=== PATIENT | female | born 1975 | race Caucasian/White ===

== ENCOUNTER 2024-02-05 18:07 | Emergency (ER) | payer OTHER, SELFPAY ==
[2024-02-05] VITALS (8 sets, daily range): BP systolic 149–174; BP diastolic 93–123; BMI 28.5
--- NOTE | 2024-02-05 19:14 | ED.GENMED ---
History of Present Illness
General
Chief Complaint: Blood Pressure Problem
Source: patient
Exam Limitations: none
Time Seen by Provider: 02/05/24 18:31
Travel History
Have you had any contact with someone who has COVID-19?: No
Do you have any symptoms of coronavirus? Fever > 100 degrees, chills, cough, shortness of breath, sore throat, loss of taste or smell, muscle aches, or headache?: No
History of Present Illness
History of Present Illness:
This is a 48 year old female that comes in with c/o hypertension. States that on she went to the PCP as she has been having trouble sleeping and increased weight gain. States that she also has a parathyroid issues that they are working up.
States that he BP was elevated at that time to 150/106. States that they checked this later and it was 145/110. States that she was told cecil buy a cuff and monitor her BP at home. States that she that today she hadn't even gotten out of bed and her
BP was 173/107. States that it seem to keep going up. States that lately she had this pin like feeling in the left chest that is deep that is dull and that she had left elbow discomfort. States that she has a dull headache that is nothing as she
normally has Migraines. States that it is behind the eyes and the temporal area. Denies any fever, chills, chest pain, SOB, abd pain, nausea, vomiting, diarrhea, dizziness, urinary burning.
Past History
Past History
ED Past Medical History: Hypothyroidism, Psychiatric (Anxiety) and Other (Migraines, C5-C6 bulging disc, Diverticulitis, Anemia, )
ED Past Surgical History: Gynecological (Hysterectomy, Bilateral Salpingectomy) and Other (Oral surgery, ganglion cyst removal )
Social History
Tobacco: Non-smoker
Alcohol: Occasional
Drug: Marijuana
Personal:
Living: alone
Review of Systems
Review of Systems
All Other Systems: ROS reviewed and negative except as documented in HPI and ROS
Constitutional: Reports no symptoms; Denies fever or chills
EENT: Reports no symptoms
Respiratory: Reports no symptoms; Denies cough or trouble breathing
Cardiac: Reports no symptoms; Denies chest pain
ABD/GI: Reports no symptoms; Denies abdominal pain, nausea, vomiting, diarrhea or constipated
: Reports no symptoms; Denies dysuria, frequency or urgency
Musculoskeletal: Reports no symptoms
Skin: Reports no symptoms
Neurological: Reports headache; Denies dizzy
Psychiatric: Reports no symptoms
Phy Exam
General Physical Exam
General Presentation: well appearing and no apparent distress
General age: appears stated age
General Skin: warm and dry
General Habitus: normal
General Mental: alert
General Hydration: appears well hydrated
ENT Exam
ENT Exam: TM's normal, pharynx normal and neck supple
Eye Exam
Eye Exam: EOMI
Cardiovascular Exam
Cardiovascular Exam: regular rate/rhythm, no edema, no murmur and normal peripheral pulses
Pulmonary Exam
Pulmonary Exam: lungs clear, no respiratory distress, no rales, chest non tender, no crackles, no rhonchi, no wheezing and no cough
Gastrointestinal Exam
Gastrointestinal Exam: normal bowel sounds, non tender, soft, no organomegaly, no pulsatile mass and non distended
Musculoskeletal Exam
Musculoskeletal Exam: full ROM and no edema
Skin Exam
Skin Exam: normal color, warm/dry, no rash and no petechia
Psychiatric Exam
Psychiatric Exam: normal mood/affect
Course
Orders/Labs/Results
Orders:
Orders
02/05/24 18:13
EKG [Electrocardiogram (*1)] Urgent
Reason for Study: Hypertension, Benign
EKG- Treatment ONCE
02/05/24 19:13
Acetaminophen [Tylenol] 1,000 mg PO NOW STA
HydrALAZINE [Apresoline] 5 mg IV NOW STA
02/05/24 19:29
Complete Blood Count/With Diff Urgent
Comprehensive Metabolic Panel Urgent
Troponin I Urgent
02/05/24 20:29
Lisinopril [Zestril] 5 mg PO NOW STA
Abnormal Lab Results
02/05/24
19:29
MCHC 32.8 L g/dL
(33.0-37.0)
BUN 20 H mg/dl
(7-17)
Calcium 10.4 H mg/dl
(8.4-10.2)
02/05/24 19:29
02/05/24 19:29
Dehydration. Troponin <0.012, Calcium slightly elevated.
Vital Signs
Initial and Last Documented VS:
Initial Vital Signs
Temp Pulse Resp BP Pulse Ox
98.5 F 95 16 174/123 99
02/05/24 18:09 02/05/24 18:09 02/05/24 18:09 02/05/24 18:09 02/05/24 18:09
Last Documented Vital Signs
Temp Pulse Resp BP Pulse Ox
98.5 F 90 16 153/95 99
02/05/24 18:09 02/05/24 20:20 02/05/24 19:24 02/05/24 20:20 02/05/24 20:20
MDM/Problems Addressed
Differential Diagnosis Includes:
Hypertension,
MDM/Problems Addressed:
This is a 48 year old female that comes in with c/o hypertension. States that she was seen in the PCP office on and her BP was elevated. States that she was told to monitory her BP. States that today she hadn't even gotten out of bed and
her BP was elevated. States that it kept going up throughout the day.
Will check labs and medication for Hypertension.
Back into see patient. BP down to 149/98. States that she feels fine. Will place patient on Lisinopril 5mg daily. Patient to follow up with the family doctor for further evaluation. Explained how to take a BP at home. Patient to return with any
concerns.
Chronic conditions affecting care:
NA
Acute Exacerbation and/or Progression of Chronic Illness:
NA
*Pulse Oximetry
Patient hypoxic: no
*EKG
Interpreted by ED Provider?: Yes
Heart Rate: 85
Rate: normal
Rhythm: sinus
[place]: normal axis
Interval: normal interval
QRS Pattern: normal QRS
Ischemia: no ischemia
*[employer] Interpretation
Rate: [employer]- N/A
*Critical Care Note
Total Time (30-74mins, 75-104mins- exclusive of procedures): Not Applicable
ED Attending Note
-
Portions of this chart may have been created with voice recognition software.� Occasional wrong word or��sound alike� substitutions may have occurred due to the inherent limitations of voice recognition software.
Discharge Plan
Departure
Patient Disposition: Home (Routine Discharge)
Date of Disposition: 02/05/24
Time of Disposition: 20:31
Patient with high blood pressure during this ER visit?: Yes
Condition: Good
Covid-19: Not Applicable
Discharge Problem:
Hypertension
Instructions: High Blood Pressure (DC), BLOOD PRESSURE
Prescriptions:
New
lisinopril 5 mg tablet
5 mg PO DAILY Qty: 30 0RF
No Action
venlafaxine [Effexor XR] 150 mg Capsule,Extended Release 24hr
150 mg PO DAILY
vitamin B complex Capsule
1 cap PO DAILY
cholecalciferol (vitamin D3) [Vitamin D3] 25 mcg (1,000 unit) Tablet
25 mcg PO DAILY
Fiber Gummies 2 gram Tablet,Chewable
2 g PO DAILY
magnesium gluconate
1 tab PO DAILY
Referrals:
Mansi Beltran CRNP [Family Provider] - Follow up in 2-3 days
Activity Restrictions/Additional Instructions:
As discussed, your blood work shows slight dehydration. Please increae your water intake to 8-8oz glasses daily. You have been given a prescription for Lisinopril and given your first dose here. Please take as directed. Follow up with the family
doctor for recheck. Monitory your blood pressure at home. IF YOU HAVE ANY OTHER CONCERNS PLEASE RETURN TO THE EMERGENCY ROOM
Interventions
Interventions:
*Risk Screen - Suicide Last Done: 02/05/24 18:09
*General Assessment Last Done: 02/05/24 18:09
*Neglect/Abuse Screening Last Done: 02/05/24 18:09
ED- Fall Risk Assessment Last Done: 02/05/24 19:40
*ED COVID-19 Vaccine History Last Done: 02/05/24 18:09
ED- Cardiac Assessment Last Done: 02/05/24 19:40
ED- Neurological Assessment Last Done: 02/05/24 19:40
ED- Pulmonary Assessment Last Done: 02/05/24 19:40
Discharge Date and Time
Print Language: [place]
[2024-02-05] MEDS: TYLENOL 1000 MG PO (19:33)
[2024-02-05] MEDS: APRESOLINE 5 MG IV (19:35)
[2024-02-05 19:41] LABS: % Basophils 0.6 % (0-2); % Eosinophils 1.2 % (0-6); % Immature Granulocytes 0.1 % (0-0.5); % Monocytes 8.1 % (1.7-9.3); Absolute Basophils 0.1 10^3/uL (0-0.2); Absolute Eosinophils 0.1 10^3/uL (0-0.7); Absolute Lymphocytes 2.1 10^3/uL (1.2-3.4); Absolute Monocytes 0.6 10^3/uL (0.1-0.6); Absolute Neutrophils 4.9 10^3/uL (1.4-6.5); Hematocrit 41.1 % (37.0-47.0); Hemoglobin 13.5 g/dL (12.0-16.0); Mean Corp Hgb Conc. 32.8 g/dL (33.0-37.0); Mean Corpuscular Hgb 28.4 pg (27.0-31.0); Mean Corpuscular Volume 86.5 fL (81.0-99.0); Mean Platelet Volume 9.9 fL (7.4-10.4); Nucleated Red Blood Cells % 0 %; Platelet Count 280 10^3/uL (130-400); Red Blood Cell Count 4.75 10^6/uL (4.20-5.40); Red Cell Dist. Width 12.8 % (11.5-14.5); White Blood Cell Count 7.7 10^3/uL (4.8-10.8)
--- NOTE | 2024-02-05 19:46 | EDRN ---
Pt went to her primary care doctor on and was told her bp was elevated. Doctor advised pt monitor her bp at home so pt bought a cuff online. This morning, pt took her bp and it was elevated prior to her getting out of bed. Pt took her bp
multiple times throughout the day and it has consistently been elevated. Family member is an EMT so pt went to local ambulance squad to have her bp checked and it was also high so pt came to ED for evaluation. Pt has had a dull sensation in her L
elbow, unknown how long. Pt denies injury. Pt has a dull headache but says 'it's nothing, I'm used to migraines.' Pt also describes a sensation in her L chest area that is not in her breast, on the inside 'like a needle in there.' Pt denies cp,
sob, abd pain, n/v, dizziness, photophobia, weakness, fever/chills/cough.
[2024-02-05 19:57] LABS: ALT (SGPT) 24 U/L (0-35); AST (SGOT) 27 U/L (14-36); Albumin 4.5 g/dl (3.5-5.0); Alkaline Phosphatase 86 U/L (38-126); Blood Urea Nitrogen 20 mg/dl (7-17); Calcium 10.4 mg/dl (8.4-10.2); Carbon Dioxide 30 mmol/L (22-30); Chloride 101 mmol/L (98-107); Estimated Creatinine Clearance 99 ml/min; Glucose 84 mg/dl (70-99); Potassium 3.9 mmol/L (3.5-5.1); Sodium 139 mmol/L (135-145); Total Bilirubin 0.5 mg/dl (0.2-1.3); Total Protein 6.9 g/dl (6.3-8.2); eGFR > 60.00
[2024-02-05 20:10] LABS: Troponin I < 0.012 ng/ml
[2024-02-05] MEDS: ZESTRIL 5 MG PO (21:05)
== END 2024-02-05 21:10 | disposition home or self-care (01) ==
LOC: EMR 18:07
PROVIDERS: Clinical Nurse Specialist Family Health; EMERGENCY PHYSICIAN Emergency Medicine; FAMILY PHYSICIAN Nurse Practitioner Primary Care
DX: I10 Essential (primary) hypertension (principal); R51.9 Headache, unspecified; R07.89 Other chest pain; M25.522 Pain in left elbow; E03.9 Hypothyroidism, unspecified; F41.9 Anxiety disorder, unspecified; D64.9 Anemia, unspecified; K57.92 Diverticulitis of intestine, part unspecified, without perforation or abscess without bleeding; Z88.1 Allergy status to other antibiotic agents; Z88.3 Allergy status to other anti-infective agents
CPT/HCPCS: 99284; 96374; 80053; 84484; 85025; 93005

== ENCOUNTER → 2024-03-13 15:51 | Outpatient (REF) | payer OTHER, SELFPAY | LOC: RCS 15:51 | PROVIDERS: ATTENDING PHYSICIAN Nurse Practitioner Family; FAMILY PHYSICIAN Nurse Practitioner Primary Care | DX: I10 Essential (primary) hypertension (principal); E78.2 Mixed hyperlipidemia; R60.0 Localized edema; E66.3 Overweight | CPT/HCPCS: 93306 ==

== ENCOUNTER 2025-02-25 06:24 | Day surgery (SDC) | payer BC, SELFPAY | END 2025-02-25 13:39 | disposition home or self-care (01) | LOC: GI 06:24 | PROVIDERS: ATTENDING PHYSICIAN Internal Medicine | DX: Z12.11 Encounter for screening for malignant neoplasm of colon (principal); K57.30 Diverticulosis of large intestine without perforation or abscess without bleeding; K64.8 Other hemorrhoids; D12.3 Benign neoplasm of transverse colon; K63.5 Polyp of colon; K62.1 Rectal polyp | CPT/HCPCS: 45380; 88305 ==